=== PATIENT | male | born 1945 | race Caucasian/White ===

== ENCOUNTER → 2017-02-10 | Outpatient (CLI) | payer MEDICARE, BC | LOC: SLEEP 15:44 | PROVIDERS: ATTEND Internal Medicine Critical Care Medicine | DX: Z53.9 Procedure and treatment not carried out, unspecified reason (principal) ==

== ENCOUNTER → 2017-11-16 | Outpatient (CLI) | payer MEDICARE, BC ==
[2017-11-16 12:08] LABS: Glucose 2 Hour 120 mg/dL
== END | disposition home or self-care (01) ==
LOC: LABWHC1 07:57
PROVIDERS: ATTEND Family Medicine
DX: R73.03 Prediabetes (principal)
CPT/HCPCS: 36415; 82947; 82950

== ENCOUNTER 2018-05-25 03:30 | Observation (INO) | payer BC, MEDICARE ==
--- NOTE | 2018-05-25 03:43 | ED ---
Chest Pain HPI - General Chief Complaint: Chest Pain Stated Complaint: chest pain Time Seen by Provider: 05/25/18 03:42 Source: patient Mode of arrival: ambulatory Limitations: no limitations - History of Present Illness Initial Comments: Mr. Ann is a pleasant 72-year-old gentleman with no cardiac history who presents to the emergency department today for evaluation of chest pain. Patient reports that he woke between 2 and 3 AM to use the restroom, upon walking to the restroom he began to feel pressure in his chest. He rested for approximately 20-30 minutes but the pressure persisted. He reports that the pressure and discomfort came and went, every time he came back he was stronger and more severe at which time he alerted his who brought him to the ER for further evaluation. Patient has no history of hypertension, reports he has borderline hyperlipidemia but is not on any statin medications he is not diabetic. He quit smoking 46 years ago. is never seen a laundry helper has no establish cardiac caries never had an echo or stress test. - Related Data Home Medications Medication Instructions Recorded Confirmed Gabapentin [Neurontin] 300 mg PO BID 06/23/14 07/05/15 Meloxicam [Mobic] 7.5 mg PO DAILY 06/23/14 07/02/15 traMADol HCl [Ultram] 50 mg PO BID 06/23/14 07/05/15 Docusate [Colace] 100 mg PO BID PRN 07/02/15 07/05/15 Hydrocortisone [Proctocream-Hc] 30 gm TP TID PRN 07/02/15 07/05/15 Previous Rx's Medication Instructions Recorded Hydrocodone/Acetaminophen [[place] 1 - 2 each PO Q6HR PRN #40 tab 07/05/15 5-325] Allergies Allergy/AdvReac Type Severity Reaction Status Date / Time No Known Allergies Allergy Verified 05/25/18 03:37 Review of Systems ROS Statement: Those systems with pertinent positive or pertinent negative responses have been documented in the HPI. ROS Other: All systems not noted in ROS Statement are negative. EKG Findings - EKG Comments: EKG Findings:: EKG obtained at 3:43 AM rate is 72 rhythm is sinus there are occasional PVCs, there is a leftward axis, there are normal intervals, VT 162, QRS 84, QTC is 402. There are no acute ST elevations or depressions is no evidence of acute ischemia or infarction. Past Medical History Additional Past Medical History / Comment(s): Restless leg syndrome, neuropathy History of Any Multi-Drug Resistant Organisms: None Reported Past Surgical History: Adenoidectomy, Appendectomy, Orthopedic Surgery, Tonsillectomy Additional Past Surgical History / Comment(s): BILATERAL ARTHRO OF BOTH KNEES Past Anesthesia/Blood Transfusion Reactions: No Reported Reaction Past Psychological History: No Psychological Hx Reported Smoking Status: Former smoker Past Alcohol Use History: Rare Past Drug Use History: None Reported - Past Family History Mother Family Medical History: Congestive Heart Failure (CHF) General Exam - General Exam Comments Initial Comments: Physical Exam GENERAL: Patient is well-developed and well-nourished. Patient is nontoxic and well- hydrated and is in no distress. HENT: Normocephalic, Atraumatic. EYES: PERRL, EOMI PULMONARY: Unlabored respirations. No audible rales rhonchi or wheezing was noted. CARDIOVASCULAR: There is a regular rate and rhythm without any murmurs gallops or rubs. ABDOMEN: Soft and nontender with normal bowel sounds. SKIN: Skin is clear with no lesions or rashes and otherwise unremarkable. : Deferred NEUROLOGIC: Patient is alert and oriented x3. Moving all extremities spontaneously MUSCULOSKELETAL: Normal extremities with adequate strength and full range of motion. No lower extremity swelling or edema. No calf tenderness. PSYCHIATRIC: Normal psychiatric evaluation. Limitations: no limitations Limitations: no limitations Course Vital Signs 05/25/18 05/25/18 05/25/18 03:35 03:43 03:50 Temperature 97.7 F Pulse Rate 73 70 Respiratory 20 9 L Rate Blood Pressure 138/83 126/88 131/87 O2 Sat by Pulse 98 95 95 Oximetry 05/25/18 05/25/18 05/25/18 04:10 04:20 04:40 Temperature Pulse Rate 64 68 70 Respiratory 15 20 14 Rate Blood Pressure 119/84 122/82 122/86 O2 Sat by Pulse 96 95 93 L Oximetry 05/25/18 05/25/18 05/25/18 04:50 05:10 05:20 Temperature Pulse Rate 62 69 68 Respiratory 17 10 L 9 L Rate Blood Pressure 122/78 121/86 115/71 O2 Sat by Pulse 93 L 95 95 Oximetry 05/25/18 05/25/18 05/25/18 05:40 05:50 06:20 Temperature Pulse Rate 67 71 Respiratory 8 L 22 Rate Blood Pressure 119/76 112/77 120/72 O2 Sat by Pulse 96 96 Oximetry Chest Pain MDM - MDM She was seen and evaluated history is obtained from the patient and at bedside Patient with pressure-like chest pain that began approximately lower prior to arrival, has improved at the time of evaluation at this time and don't feel the patient needs nitro EKG is non-ischemic Cardiac workup ordered Given the patient's advanced age and male gender history of smoking I do feel he warrants further evaluation Patient care was discussed with Dr. Patterson who agrees with plan for observation and cardiology evaluation Disposition Clinical Impression: Chest pain Disposition: ADMITTED IP TO THIS HOSP Is patient prescribed a controlled substance at d/c from ED?: No Referrals: Madyson Sandoval DO [Primary Care Provider] - 1-2 days
--- NOTE | 2018-05-25 04:17 | XR ---
EXAM: XR Chest, 2 Views CLINICAL HISTORY: Chest pain TECHNIQUE: Frontal and lateral views of the chest. COMPARISON: No relevant prior studies available. FINDINGS: Lungs: Unremarkable. No consolidation. Pleural space: Unremarkable. No pneumothorax. Heart: Unremarkable. No cardiomegaly. Mediastinum: Unremarkable. Bones/joints: Unremarkable. IMPRESSION: Normal chest x-rays.
[2018-05-25 05:30] LABS: Basophils % (A) 1 %; Eosinophils # (A) 0.2 k/uL (0-0.7); Eosinophils % (A) 4 %; HCT 43.4 % (39.0-53.0); HGB 14.9 gm/dL (13.0-17.5); Lymphocytes # (A) 1.6 k/uL (1.0-4.8); Lymphocytes % (A) 35 %; MCHC 34.3 g/dL (31.0-37.0); MCV 90.6 fL (80.0-100.0); Mean Platelet Volume 8.7; Monocytes # (A) 0.3 k/uL (0-1.0); Monocytes % (A) 8 %; Neutrophils # (A) 2.2 k/uL (1.3-7.7); Neutrophils % (A) 49 %; Platelet Count 156 k/uL (150-450); RDW 13.4 % (11.5-15.5); WBC 4.5 k/uL (3.8-10.6)
[2018-05-25 05:40] LABS: Partial Thromboplastin Time 24.9 sec (22.0-30.0); Prothrombin Time 10.8 sec (9.0-12.0)
[2018-05-25 05:59] LABS: ALT 33 U/L (21-72); AST 47 U/L (17-59); Albumin 4.1 g/dL (3.5-5.0); Alkaline Phosphatase 84 U/L (38-126); Amylase 81 U/L (30-110); Anion Gap 6 mmol/L; Blood Urea Nitrogen 21 mg/dL (9-20); Calcium 9.6 mg/dL (8.4-10.2); Carbon Dioxide 23 mmol/L (22-30); Chloride 111 mmol/L (98-107); Glucose 96 mg/dL (74-99); Lipase 165 U/L (23-300); Magnesium 2.1 mg/dL (1.6-2.3); Potassium 4.4 mmol/L (3.5-5.1); Sodium 140 mmol/L (137-145); Total Bilirubin 0.5 mg/dL (0.2-1.3); Total Protein 6.7 g/dL (6.3-8.2)
[2018-05-25 06:11] LABS: Creatine Kinase 445 U/L (55-170)
[2018-05-25 06:24] LABS: Creatine Kinase MB 5.3 ng/mL (0.0-2.4); Troponin I <0.012 ng/mL (0.000-0.034)
[2018-05-25] MEDS ORDERED: NITROGLYCERIN SL TABS 0.4 MG TAB SUBLINGUAL PRN (06:33)
--- NOTE | 2018-05-25 09:54 | P.HPIM ---
History of Present Illness H&P Date: 05/25/18 This is a 72-year-old male patient of Dr. Sandoval. Patient presented to the hospital with complaints of chest pain. Patient reports that he woke up around 3 AM this morning to to the bathroom when he started to experience chest pain and pressure. Patient reports this pain increased and caused shortness of breath and nausea. At that time patient woke up late and proceeded to come to ER for further evaluation. Patient medical history includes hyperlipidemia, pneumonia, tonsillectomy and orthopedic surgeries. Patient reports he was an ex -smoker but quit in 1972. Patient reports his father did have congestive heart failure unaware of any other significant cardiac history. Troponin negative. Chest x-ray completed showing normal chest x-ray. EKG completed showing sinus rhythm with occasional immature ventricular complexes left axis deviation, inferior infarct age undetermined. Cardiology services have been consulted 2-D echo has been ordered. At this time patient reports no chest pain or shortness breath. Patient denies nausea vomiting or diarrhea. Denies any urinary burning or frequency. Review of Systems Please refer to HPI otherwise unremarkable Past Medical History Past Medical History: Hyperlipidemia, Pneumonia Additional Past Medical History / Comment(s): Neuropathy bilateral feet, pt was placed on statin but took himself off, arthritis bilateral thumbs/knees, bilateral eyes have floaters and pt states they are monitoring something in the back of his eyes but doesn't remember exactly what. History of Any Multi-Drug Resistant Organisms: None Reported Past Surgical History: Adenoidectomy, Appendectomy, Orthopedic Surgery, Tonsillectomy Additional Past Surgical History / Comment(s): Bilateral knee arthroscopies, L shoulder arthroscopy/rotator cuff surgery, colonoscopy-normal, bilateral cataract removal/lens implants. Past Anesthesia/Blood Transfusion Reactions: No Reported Reaction Smoking Status: Former smoker - Past Family History Mother Family Medical History: Congestive Heart Failure (CHF) Father Family Medical History: Musculoskeletal Disorder, Neurologic Disorder Additional Family Medical History / Comment(s): Father had parkinson's dx. Medications and Allergies Home Medications Medication Instructions Recorded Confirmed Type Multivitamin/Mineral/Probiotic 1 pack PO HS 05/25/18 05/25/18 History traMADol-ACETAMINOP 37.5-325MG 0.5 tab PO HS 05/25/18 05/25/18 History [Ultracet] Allergies Allergy/AdvReac Type Severity Reaction Status Date / Time No Known Allergies Allergy Verified 05/25/18 06:56 Physical Exam Vitals: Vital Signs Temp Pulse Resp BP Pulse Ox 05/25/18 09:41 74 18 121/80 98 05/25/18 07:51 77 16 110/63 98 05/25/18 06:20 71 22 120/72 96 05/25/18 05:50 112/77 05/25/18 05:40 67 8 L 119/76 96 05/25/18 05:20 68 9 L 115/71 95 05/25/18 05:10 69 10 L 121/86 95 05/25/18 04:50 62 17 122/78 93 L 05/25/18 04:40 70 14 122/86 93 L 05/25/18 04:20 68 20 122/82 95 05/25/18 04:10 64 15 119/84 96 05/25/18 03:50 70 9 L 131/87 95 05/25/18 03:43 126/88 95 05/25/18 03:35 97.7 F 73 20 138/83 98 Intake and Output 05/24/18 05/25/18 05/25/18 22:59 06:59 14:59 Other: Weight 94.347 kg Head normocephalic Neck supple Lungs clear to auscultation bilaterally no wheezing or crackles Heart regular rate and rhythm S1-S2, no rub or gallop Abdomen is soft nontender nondistended positive bowel sounds no hepatosplenomegaly Extremities no edema Neuro alert and orientated to 3 Results CBC & Chem 7: 05/25/18 03:51 05/25/18 03:51 Labs: Abnormal Lab Results - Last 24 Hours (Table) 05/25/18 05/25/18 Range/Units 03:51 03:51 Chloride 111 H (98-107) mmol/L BUN 21 H (9-20) mg/dL Total Creatine Kinase 445 H (55-170) U/L CK-MB (CK-2) 5.3 H (0.0-2.4) ng/mL Thrombosis Risk Factor Assmnt - Choose All That Apply Any of the Below Risk Factors Present?: Yes Each Factor Represents 1 point: Obesity (BMI >25) Other Risk Factors: Yes Each Risk Factor Represents 2 Points: Age 61-74 years Other congenital or acquired thrombophilia - If yes, enter type in comment: No Thrombosis Risk Factor Assessment Total Risk Factor Score: 3 Thrombosis Risk Factor Assessment Level: Moderate Risk Assessment and Plan Assessment: 1. Chest pain. Troponin negative. EKG completed showing sinus rhythm with occasional premature ventricular complexes. Left axis deviation. Inferior infarct, age undetermined. Chest x-ray negative. 2-D echo has been ordered. Cardiology planning stress test tomorrow 2. History of hyperlipidemia 3. History of restless leg syndrome 4. History of orthopedic surgeries 5. Previous smoker from [id number] Time with Patient: Greater than 30 (Greater than 60% of the total time spent in counseling and coordination of care. I performed an examination of the patient and discussed their management with the Nurse Practitioner. I have reviewed the Nurse Practitioner's notes and agree with the documented findings and plan of care)
--- NOTE | 2018-05-25 10:27 | ECHOF ---
Referral Reason:chestpain, no cardiac history MEASUREMENTS -------- HEIGHT: 177.8 cm WEIGHT: 94.3 kg BP: 120/72 RVIDd: 3.4 cm (< 3.3) IVSd: 1.3 cm (0.6 - 1.1) LVIDd: 4.2 cm (3.9 - 5.3) LVPWd: 1.3 cm (0.6 - 1.1) IVSs: 1.7 cm LVIDs: 3.0 cm LVPWs: 1.6 cm LA Diam: 3.3 cm (2.7 - 3.8) LAESV Index (A-L): 22.60 ml/m Ao Diam: 3.3 cm (2.0 - 3.7) AV Cusp: 2.0 cm (1.5 - 2.6) MV EXCURSION: 13.883 mm (> 18.000) MV EF SLOPE: 72 mm/s (70 - 150) EPSS: 0.6 cm MV E Rajiv: 0.66 m/s MV DecT: 206 ms MV A Rajiv: 0.84 m/s MV E/A Ratio: 0.79 RAP: 5.00 mmHg RVSP: 25.25 mmHg FINDINGS -------- Sinus rhythm. This was a technically good study. The left ventricular size is normal. There is mild concentric left ventricular hypertrophy. Overa ll left ventricular systolic function is normal with, an EF between 60 - 65 %. The right ventricle is mildly enlarged. Normal LA size by volume 22+/-6 ml/m2. The right atrium is normal in size. The aortic valve is trileaflet and appears structurally normal. The mitral valve is normal. Mild tricuspid regurgitation present. Right ventricular systolic pressure is normal at < 35 mmHg. Trace/mild (physiologic) pulmonic regurgitation. The aortic root, ascending aorta and aortic arch are normal. IVC Not well visulized. There is no pericardial effusion. CONCLUSIONS -------- 1. Sinus rhythm. 2. This was a technically good study. 3. The left ventricular size is normal. 4. There is mild concentric left ventricular hypertrophy. 5. Overall left ventricular systolic function is normal with, an EF between 60 - 65 %. 6. The right ventricle is mildly enlarged. 7. Normal LA size by volume 22+/-6 ml/m2. 8. The right atrium is normal in size. 9. The aortic valve is trileaflet and appears structurally normal. 10. The mitral valve is normal. 11. Mild tricuspid regurgitation present. 12. Right ventricular systolic pressure is normal at < 35 mmHg. 13. Trace/mild (physiologic) pulmonic regurgitation. 14. The aortic root, ascending aorta and aortic arch are normal. 15. IVC Not well visulized. 16. There is no pericardial effusion. BESSEMER BOTTOM MAKER: Beverley Alvarado RDCS
[2018-05-25] MEDS ORDERED: REGADENOSON 0.4 MG/5 ML SYRINGE IV ONE (10:44)
[2018-05-25] MEDS ORDERED: CAFFEINE CITRATE 60 MG/3 ML VIAL IV PRN (10:44)
[2018-05-25 11:18] LABS: Creatine Kinase 389 U/L (55-170)
--- NOTE | 2018-05-25 11:27 | CONS ---
CONSULTATION CHIEF COMPLAINT: Chest pain. Carlos is a 72-year-old gentleman with no significant past medical history who presented to hospital complaining of chest pain. He describes it as precordial chest pressure that came on at rest without radiation to neck, arm or back. It is unassociated with diaphoresis and unrelated to exertion. There is no history of leg edema, paroxysmal nocturnal dyspnea or orthopnea. PAST MEDICAL HISTORY: Past medical history is negative for hypertension, diabetes, dyslipidemia. MEDICATIONS: Medications include Ultracet and Probiotic. He takes Ultracet secondary to knee pain. ALLERGIES: No known drug allergies. FAMILY HISTORY: Family history is negative for premature coronary artery disease. SOCIAL HISTORY: Social history is negative for current smoking, EtOH abuse, or drug abuse. REVIEW OF SYSTEMS: HEENT is unremarkable. CARDIAC: As described above. RESPIRATORY: Negative. GI: Negative. GENITOURINARY: Negative. ALLERGY/IMMUNOLOGY: Negative. SKIN: Negative. MUSCULOSKELETAL: Significant for arthritis. PSYCHOSOCIAL: Negative ENDOCRINE: Negative. DERM: Negative. CONSTITUTIONAL: Negative. ONCOLOGICAL: Negative. Rest of the system review is not relevant. PHYSICAL EXAMINATION: On exam, patient is comfortable at rest. Vital signs are stable. There is no jugular venous distention. Carotid upstroke is normal. There is no bruit. Chest exam reveals good air entry bilaterally. Heart exam reveals first and second heart sounds. No gallop. No murmur. No rub. Abdomen is soft, nontender. Examination of extremities did not reveal edema. Peripheral pulses are felt. WHITE SUGAR SUPERVISOR exam did not reveal focal neurological deficits. Labs show a hemoglobin of 14.9, platelet count is 150. Potassium is 4.4. Creatinine is 0.8. One set of troponin is negative. ASSESSMENT: Precordial chest pain. PLAN: Patient's chest discomfort sounds equivocal. EKG shows sinus rhythm with evidence of prior inferior wall myocardial infarction, left axis deviation, and PVCs. An echocardiogram showed normal LV systolic function. I talked to patient about further workup including cardiac catheterization for definitive diagnosis. Understanding all the issues, he wishes to proceed with a stress test and if the stress test is abnormal consider cardiac catheterization. I am going to schedule him for a Lexiscan tomorrow morning. MMODL / IJN: [id number] /
[2018-05-25 11:32] LABS: Creatine Kinase MB 3.9 ng/mL (0.0-2.4); Troponin I <0.012 ng/mL (0.000-0.034)
[2018-05-25 16:47] LABS: Creatine Kinase 365 U/L (55-170)
[2018-05-25 16:59] LABS: Troponin I <0.012 ng/mL (0.000-0.034)
[2018-05-25] MEDS: traMADol-ACETAMINOP 37.5-325MG 1 EACH TAB PO SCH (21:36)
[2018-05-26 06:56] LABS: Basophils % (A) 0 %; Eosinophils # (A) 0.2 k/uL (0-0.7); Eosinophils % (A) 4 %; HCT 44.8 % (39.0-53.0); HGB 14.7 gm/dL (13.0-17.5); Lymphocytes # (A) 1.4 k/uL (1.0-4.8); Lymphocytes % (A) 32 %; MCHC 32.7 g/dL (31.0-37.0); MCV 91.5 fL (80.0-100.0); Mean Platelet Volume 7.7; Monocytes # (A) 0.3 k/uL (0-1.0); Monocytes % (A) 7 %; Neutrophils # (A) 2.3 k/uL (1.3-7.7); Neutrophils % (A) 54 %; Platelet Count 161 k/uL (150-450); RDW 13.1 % (11.5-15.5); WBC 4.3 k/uL (3.8-10.6)
[2018-05-26 07:07] LABS: ALT 43 U/L (21-72); AST 37 U/L (17-59); Albumin 4.1 g/dL (3.5-5.0); Alkaline Phosphatase 90 U/L (38-126); Anion Gap 7 mmol/L; Blood Urea Nitrogen 21 mg/dL (9-20); Calcium 9.4 mg/dL (8.4-10.2); Carbon Dioxide 23 mmol/L (22-30); Chloride 110 mmol/L (98-107); Cholesterol 173 mg/dL (<200); Glucose 107 mg/dL (74-99); HDL Cholesterol 47 mg/dL (40-60); LDL Cholesterol,Calculated 91 mg/dL (0-99); Potassium 4.9 mmol/L (3.5-5.1); Sodium 140 mmol/L (137-145); Total Bilirubin 0.5 mg/dL (0.2-1.3); Total Protein 6.9 g/dL (6.3-8.2); Triglycerides 177 mg/dL (<150)
[2018-05-26] MEDS ORDERED: REGADENOSON 0.4 MG/5 ML SYRINGE IV ONE (08:46)
[2018-05-26] MEDS: ASPIRIN 325 MG TAB PO SCH (10:01)
--- NOTE | 2018-05-26 10:55 | EST ---
EXERCISE STRESS AGE: 72 SEX: M HT: 70" WT: 208 PROTOCOL: Lexiscan Cardiolite Stress Test HEART RATE REST: 69 BLOOD PRESSURE REST: 120/77 MAXIMUM HEART RATE ACHIEVED: 101 MAXIMUM BLOOD PRESSURE: 125/65 INDICATIONS: Chest pain, difficulty in breathing. CLINICAL INFORMATION: Baseline EKG shows sinus rhythm, normal axis, normal intervals. Patient was given intravenous Lexiscan as per protocol. Did not have chest pain or diagnostic ST-segment depression. CONCLUSION: 1. Negative stress test by EKG criteria. 2. Cardiolite portion of the stress test will be reported separately. MMODL / IJN: [id number] /
--- NOTE | 2018-05-26 11:09 | P.PN ---
Subjective Mr. Apodaca is seen and examined up and walking in the halls and around his room. He denies any further symptoms of chest discomfort. He is scheduled to undergo Lexiscan stress test today. Cardiac enzymes negative x3, WBC 4.3, hgb 14.7, plt 161, sodium 140, potassium 4.9, creatinine 0.95, LDL 91. Blood pressure 113/74, heart rate 72, afebrile and maintaining oxygen saturation on room air. He currently takes no daily medications. Telemetry tracings unremarkable. GENERAL: Well-appearing, well-nourished and in no acute distress. NECK: Supple without JVD or thyromegaly. LUNGS: Breath sounds clear to auscultation bilaterally. Respiration equal and unlabored. No wheezes, rales or rhonchi. HEART: Regular rate and rhythm without murmurs, rubs or gallops. S1 and S2 heard. EXTREMITIES: Normal range of motion, no edema. No clubbing or cyanosis. Peripheral pulses intact. ASSESSMENT Precordial chest pain, an acute event has been ruled out. PLAN Proceed with stress test as ordered. If normal he is stable from a cardiac perspective for discharge home. If abnormal we will consider coronary angiography. Nurse Practitioner note has been reviewed, I agree with a documented findings and plan of care. Patient was seen and examined. Objective - Vital Signs Vital signs: Vital Signs Temp 98 F 05/26/18 07:35 Pulse 72 05/26/18 08:00 Resp 18 05/26/18 08:00 BP 113/74 05/26/18 07:35 Pulse Ox 95 05/26/18 07:35 Intake & Output 05/25/18 05/26/18 05/26/18 18:59 06:59 18:59 Intake Total 440 Balance 440 Intake: Oral 240 Other 200 Other: Voiding Method Toilet Toilet Toilet # Voids 2 1 - Labs CBC & Chem 7: 05/26/18 06:37 05/26/18 06:37 Labs: Abnormal Lab Results - Last 24 Hours (Table) 05/25/18 05/25/18 05/26/18 Range/Units 10:46 16:17 06:37 Chloride 110 H (98-107) mmol/L BUN 21 H (9-20) mg/dL Glucose 107 H (74-99) mg/dL Total Creatine Kinase 389 H 365 H (55-170) U/L CK-MB (CK-2) 3.9 H 4.0 H (0.0-2.4) ng/mL Triglycerides 177 H (<150) mg/dL
--- NOTE | 2018-05-26 11:25 | NM ---
EXAMINATION TYPE: NM stress lexiscan cardiolite DATE OF EXAM: 05/26/2018 COMPARISON: NONE HISTORY: Chest pain TECHNIQUE: After the intravenous administration of 9.68 mCi Tc 99m Sestamibi - Cardiolite resting SP ECT images acquired 60 minutes post injection. The patient received 0.4mg Lexiscan, 26.6 mCi Tc 99m Sestamibi - Stress images obtained [address] injection FINDINGS: Review of stress and rest SPECT images demonstrates decreased radio pharmaceutical uptake along the i nferolateral left ventricle on stress and rest images. Along the inferolateral left ventricle there i s some decreased uptake on stress as compared to rest images. Gated analysis shows normal wall motion with an estimated left ventricular ejection fraction of 67 %. 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 Consider echocardiographic correlation for elevated ejection fraction
[2018-05-26] MEDS ORDERED: ALPRAZolam 0.25 MG TAB PO PRN (11:33)
[2018-05-26] MEDS ORDERED: SODIUM CHLORIDE 0.9% 1,000 ML in EMPTY BAG 1 BAG IV ONE (11:33)
[2018-05-26] MEDS ORDERED: ALPRAZolam 0.5 MG TAB PO PRN (11:33)
--- NOTE | 2018-05-26 12:11 | P.PN ---
Subjective Progress Note Date: 05/26/18 This is a 72-year-old male patient of Dr. Sandoval. Patient presented to the hospital with complaints of chest pain. Patient reports that he woke up around 3 AM this morning to to the bathroom when he started to experience chest pain and pressure. Patient reports this pain increased and caused shortness of breath and nausea. At that time patient woke up late and proceeded to come to ER for further evaluation. Patient medical history includes hyperlipidemia, pneumonia, tonsillectomy and orthopedic surgeries. Patient reports he was an ex -smoker but quit in 1972. Patient reports his father did have congestive heart failure unaware of any other significant cardiac history. Troponin negative. Chest x-ray completed showing normal chest x-ray. EKG completed showing sinus rhythm with occasional immature ventricular complexes left axis deviation, inferior infarct age undetermined. Cardiology services have been consulted 2-D echo has been ordered. At this time patient reports no chest pain or shortness breath. Patient denies nausea vomiting or diarrhea. Denies any urinary burning or frequency. On 05/26/2018 patient is alert and oriented 3. Patient had stress test completed today per cardiology recommending cardiac cath. Patient to have cardiac cath done tomorrow. At this time patient denies chest pain or shortness of breath. Patient denies nausea vomiting or diarrhea. Patient denies any urinary burning or frequency. Objective - Vital Signs Vital signs: Vital Signs Temp 98 F 05/26/18 07:35 Pulse 72 05/26/18 08:00 Resp 18 05/26/18 08:00 BP 113/74 05/26/18 07:35 Pulse Ox 95 05/26/18 07:35 Intake & Output 05/25/18 05/26/18 05/26/18 18:59 06:59 18:59 Intake Total 440 Balance 440 Intake: Oral 240 Other 200 Other: Voiding Method Toilet Toilet Toilet # Voids 2 1 - Exam Head normocephalic Neck supple Lungs clear to auscultation bilaterally no wheezing or crackles Heart regular rate and rhythm S1-S2, no rub or gallop Abdomen is soft nontender nondistended positive bowel sounds no hepatosplenomegaly Extremities no edema Neuro alert and orientated to 3 - Labs CBC & Chem 7: 05/26/18 06:37 05/26/18 06:37 Labs: Abnormal Lab Results - Last 24 Hours (Table) 05/25/18 05/26/18 Range/Units 16:17 06:37 Chloride 110 H (98-107) mmol/L BUN 21 H (9-20) mg/dL Glucose 107 H (74-99) mg/dL Total Creatine Kinase 365 H (55-170) U/L CK-MB (CK-2) 4.0 H (0.0-2.4) ng/mL Triglycerides 177 H (<150) mg/dL Assessment and Plan Assessment: 1. Chest pain. Troponin negative. EKG completed showing sinus rhythm with occasional premature ventricular complexes. Left axis deviation. Inferior infarct, age undetermined. Chest x-ray negative. 2-D echo completed showing an EF of 60-65%. Lexiscan stress test completed showing findings suggest previous infarct along the inferior wall ventricle with some mi-infarct pharmacologically induced left ventricular myocardial ischemia. Patient to undergo cardiac cath tomorrow per cardiology. 2. History of hyperlipidemia 3. History of restless leg syndrome 4. History of orthopedic surgeries 5. Previous smoker from [id number] I performed an examination of the patient and discussed their management with the Nurse Practitioner. I have reviewed the Nurse Practitioner's notes and agree with the documented findings and plan of care
[2018-05-26] MEDS ORDERED: MELATONIN 1 MG TAB PO SCH (21:00)
[2018-05-26] MEDS: traMADol-ACETAMINOP 37.5-325MG 1 EACH TAB PO SCH (21:01)
[2018-05-27 04:19] VITALS: TEMP 97.9
[2018-05-27] MEDS: ASPIRIN 325 MG TAB PO SCH (07:45)
[2018-05-27 07:56] LABS: Basophils % (A) 0 %; Eosinophils # (A) 0.1 k/uL (0-0.7); Eosinophils % (A) 3 %; HCT 41.5 % (39.0-53.0); Lymphocytes # (A) 1.3 k/uL (1.0-4.8); Lymphocytes % (A) 34 %; MCH 31.2 pg (25.0-35.0); MCHC 33.9 g/dL (31.0-37.0); MCV 92.1 fL (80.0-100.0); Mean Platelet Volume 8.5; Monocytes # (A) 0.3 k/uL (0-1.0); Monocytes % (A) 7 %; Neutrophils # (A) 2.1 k/uL (1.3-7.7); Neutrophils % (A) 54 %; Platelet Count 133 k/uL (150-450); RDW 13.4 % (11.5-15.5); WBC 3.9 k/uL (3.8-10.6)
[2018-05-27 08:24] LABS: ALT 43 U/L (21-72); AST 33 U/L (17-59); Albumin 3.9 g/dL (3.5-5.0); Alkaline Phosphatase 90 U/L (38-126); Anion Gap 10 mmol/L; Blood Urea Nitrogen 17 mg/dL (9-20); Carbon Dioxide 21 mmol/L (22-30); Chloride 111 mmol/L (98-107); Glucose 105 mg/dL (74-99); Potassium 4.4 mmol/L (3.5-5.1); Sodium 142 mmol/L (137-145); Total Bilirubin 0.4 mg/dL (0.2-1.3); Total Protein 6.5 g/dL (6.3-8.2)
[2018-05-27] MEDS ORDERED: LIDOCAINE 1% INJ 10MG/ML (20 ML MDV) ONE (08:28)
[2018-05-27] MEDS ORDERED: fentaNYL (PF) 50 MCG/ML 2 ML AMP ONE (08:28)
[2018-05-27 08:33] VITALS: RESP 18
[2018-05-27] MEDS ORDERED: MIDAZOLAM 2 MG/2 ML VIAL IVP ONE (08:35)
[2018-05-27] MEDS ORDERED: fentaNYL (PF) 50 MCG/ML 2 ML AMP IVP ONE (08:35)
[2018-05-27] MEDS ORDERED: LIDOCAINE 1% INJ 10MG/ML (20 ML MDV) SQ ONE (08:36)
[2018-05-27] MEDS ORDERED: IV FLUID CONTINUATION 1,000 ML IV ONE (08:40)
[2018-05-27] MEDS ORDERED: IOPAMIDOL-370 100ML BTL INJ ONE (08:49)
[2018-05-27] MEDS ORDERED: RX INFO: IV CONTRAST WAS GIVEN 1 EACH MISC MISCELLANE PRN (08:56)
[2018-05-27] MEDS ORDERED: METOPROLOL SUCCINATE (ER) 25 MG TAB.ER.24H PO SCH (09:00)
[2018-05-27] MEDS ORDERED: ASPIRIN 81 MG PO SCH (09:00)
[2018-05-27] MEDS ORDERED: ATORVASTATIN 80 MG TAB PO ONE (09:00)
--- NOTE | 2018-05-27 09:08 | CC ---
CARDIAC CATHETERIZATION REPORT INDICATION: Unstable angina with abnormal stress test. PROCEDURE NOTE: After obtaining informed consent, left heart catheterization and coronary angiogram are performed via the right femoral artery using standard Trevor catheters. The patient tolerated the procedure well without any obvious immediate complication. A femoral angiogram was performed and Angio-Seal was deployed for hemostasis. Patient received moderate conscious sedation and total sedation time was 15 minutes. FINDINGS: 1. HEMODYNAMICS: Left ventricular end-diastolic pressure is 8 mm. There is no significant gradient across the aortic valve. 2. LEFT VENTRICULOGRAM: Left ventriculogram is not performed. 3. ANGIOGRAPHIC DATA: Left Main Coronary Artery: Left main coronary artery appears calcified but is free of significant stenosis. Divides into left anterior descending coronary artery and circumflex coronary artery. Circumflex coronary artery is a small nondominant vessel that seems chronically occluded past the origin of an OM branch. Both the LAD and circumflex have mild diffuse intimal irregularities. Right coronary artery is a large dominant vessel and is free of significant disease. 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 PLAN: Patient's management is going to be with optimal medical therapy and aggressive risk factor modification. I reviewed angiographic data with the patient. He understands and agreement with the plan. MMODL / IJN: [id number] /
[2018-05-27 13:03] VITALS: BP 116/75; PULSE 76
--- NOTE | 2018-05-27 14:16 | P.DS ---
Providers Date of admission: 05/25/18 06:33 Expected date of discharge: 05/27/18 Attending physician: Liz Patterson Consults: 05/25/18 06:33 Consult Physician Urgent Consulting Provider: [facility] Consult Reason/Comments: chest pain, Do you want consulting provider notified?: Yes, Notify in am Primary care physician: Madyson Sandoval [facility] Course: Discharge diagnosis 1. Chest pain. Troponin negative. EKG completed showing sinus rhythm with occasional premature ventricular complexes. Left axis deviation. Inferior infarct, age undetermined. Chest x-ray negative. 2-D echo completed showing an EF of 60-65%. Lexiscan stress test completed showing findings suggest previous infarct along the inferior wall ventricle with some mi-infarct pharmacologically induced left ventricular myocardial ischemia. 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 Plan to continue with optimal medical therapy and aggressive risk factor modification. 2. History of hyperlipidemia 3. History of restless leg syndrome 4. History of orthopedic surgeries 5. Previous smoker from [id number] Hospital course This is a 72-year-old male patient of Dr. Sandoval. Patient presented to the hospital with complaints of chest pain. Patient reports that he woke up around 3 AM this morning to to the bathroom when he started to experience chest pain and pressure. Patient reports this pain increased and caused shortness of breath and nausea. At that time patient woke up late and proceeded to come to ER for further evaluation. Patient medical history includes hyperlipidemia, pneumonia, tonsillectomy and orthopedic surgeries. Patient reports he was an ex -smoker but quit in 1972. Patient reports his father did have congestive heart failure unaware of any other significant cardiac history. Troponin negative. Chest x-ray completed showing normal chest x-ray. EKG completed showing sinus rhythm with occasional immature ventricular complexes left axis deviation, inferior infarct age undetermined. Cardiology services have been consulted 2-D echo has been ordered. At this time patient reports no chest pain or shortness breath. Patient denies nausea vomiting or diarrhea. Denies any urinary burning or frequency. On 05/26/2018 patient is alert and oriented 3. Patient had stress test completed today per cardiology recommending cardiac cath. Patient to have cardiac cath done tomorrow. At this time patient denies chest pain or shortness of breath. Patient denies nausea vomiting or diarrhea. Patient denies any urinary burning or frequency. On 05/27/2018 patient's alert and oriented 3. Patient is status post heart cath which was found he had chronic occlusion of the small bowel nondominant circumflex coronary artery. Patient has been cleared for discharge from cardiology standpoint. Patient will be DC'd on Lipitor metoprolol and aspirin per cardiology services. At this time patient denies chest pain or shortness breath. Patient denies nausea vomiting or diarrhea. Patient denies urinary burning or frequency. I performed an examination of the patient and discussed their management with the Nurse Practitioner. I have reviewed the Nurse Practitioner's notes and agree with the documented findings and plan of care Patient Condition at Discharge: Stable Plan - Discharge Summary Discharge Rx Participant: No New Discharge Prescriptions: New Aspirin 81 mg PO DAILY chew Atorvastatin [Lipitor] 40 mg PO DAILY #90 tab Metoprolol Succinate (ER) [Toprol XL] 12.5 mg PO DAILY #90 tab.er.24h Continue traMADol-ACETAMINOP 37.5-325MG [Ultracet] 0.5 tab PO HS Multivitamin/Mineral/Probiotic 1 pack PO HS Discharge Medication List Multivitamin/Mineral/Probiotic 1 pack PO HS 05/25/18 [History] traMADol-ACETAMINOP 37.5-325MG [Ultracet] 0.5 tab PO HS 05/25/18 [History] Aspirin 81 mg PO DAILY chew 05/27/18 [Rx] Atorvastatin [Lipitor] 40 mg PO DAILY #90 tab 05/27/18 [Rx] Metoprolol Succinate (ER) [Toprol XL] 12.5 mg PO DAILY #90 tab.er.24h 05/27/18 [ Rx] Follow up Appointment(s)/Referral(s): Madyson Sandoval DO [Primary Care Provider] - 1-2 days Ketan Conley MD [STAFF PHYSICIAN] - 1 Week Activity/Diet/Wound Care/Special Instructions: Activity as tolerated Diet heart healthy Discharge Disposition: HOME SELF-CARE
[2018-05-28] MEDS ORDERED: ATORVASTATIN 40 MG TAB PO SCH (09:00)
== END 2018-05-27 15:30 | disposition home or self-care (01) ==
LOC: EC 03:30 → 1SOBS 06:33
PROVIDERS: ADMIT Internal Medicine; ATTEND Internal Medicine
DX: R07.89 Other chest pain (principal); I25.10 Atherosclerotic heart disease of native coronary artery without angina pectoris; I25.82 Chronic total occlusion of coronary artery; I49.3 Ventricular premature depolarization; I25.2 Old myocardial infarction; E78.5 Hyperlipidemia, unspecified; R94.39 Abnormal result of other cardiovascular function study; G62.9 Polyneuropathy, unspecified; M17.0 Bilateral primary osteoarthritis of knee; G25.81 Restless legs syndrome; M19.042 Primary osteoarthritis, left hand; M19.041 Primary osteoarthritis, right hand; H43.393 Other vitreous opacities, bilateral; E66.9 Obesity, unspecified; Z68.29 Body mass index [BMI] 29.0-29.9, adult; Z79.1 Long term (current) use of non-steroidal anti-inflammatories (NSAID); Z79.891 Long term (current) use of opiate analgesic; Z79.899 Other long term (current) drug therapy; Z90.49 Acquired absence of other specified parts of digestive tract; Z98.42 Cataract extraction status, left eye; Z98.41 Cataract extraction status, right eye; Z96.1 Presence of intraocular lens; Z87.891 Personal history of nicotine dependence; Z87.01 Personal history of pneumonia (recurrent); Z82.49 Family history of ischemic heart disease and other diseases of the circulatory system; Z82.0 Family history of epilepsy and other diseases of the nervous system
CPT/HCPCS: 99152; 99285; 36415; 93005; 93017; 93306; 93458; 83880; 80061; 80053 ×3; 82150; 82550; 82553; 83690; 83735; 84484; 85025 ×3; 85610; 85730; 71046; 78452; G0378 ×3; C1760; C1894; C1769; A9500; J2250; J2001; J3010; J2785; Q9967

== ENCOUNTER 2019-06-19 14:04 | Emergency (ER) | payer OTHER, MEDICARE ==
[2019-06-19 14:12] VITALS: BP 146/92; PULSE 75; RESP 16; TEMP 97.9
--- NOTE | 2019-06-19 14:47 | XR ---
EXAMINATION TYPE: XR hand complete LT DATE OF EXAM: 06/19/2019 COMPARISON: NONE HISTORY: Pain TECHNIQUE: 3 views FINDINGS: There is narrowing of the IP joint spaces with spur formation. There is moderate osteoarthr itis at the first carpometacarpal joint. MP joint spaces show no subluxation. There is slight narrowi ng of the second MP joint space. There is no evidence of a fracture. IMPRESSION: Osteoarthritis. No fracture.
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
== END 2019-06-19 14:58 | disposition home or self-care (01) ==
LOC: EC 14:04
DX: M79.642 Pain in left hand (principal); M18.0 Bilateral primary osteoarthritis of first carpometacarpal joints; M17.0 Bilateral primary osteoarthritis of knee; Z87.891 Personal history of nicotine dependence; Z79.891 Long term (current) use of opiate analgesic; V43.52XA Car driver injured in collision with other type car in traffic accident, initial encounter; Y92.410 Unspecified street and highway as the place of occurrence of the external cause
CPT/HCPCS: 99284

== ENCOUNTER → 2020-05-30 | Outpatient (CLI) | payer MEDICARE ==
--- NOTE | 2020-05-31 09:06 | XR ---
EXAMINATION TYPE: XR chest 2V DATE OF EXAM: 05/30/2020 COMPARISON: 05/25/2018 HISTORY: Shortness of breath TECHNIQUE: Frontal and lateral views of the chest are obtained. FINDINGS: Scattered senescent parenchymal changes noted. Hyperinflation compatible with COPD. No evidence for infiltrate. No evidence for atelectasis. Heart size is stable. Mediastinal structures are stable and grossly unremarkable. No evidence for hilar prominence. Degenerative changes dorsal spine. IMPRESSION: 1. No evidence for acute pulmonary disease.
== END | disposition home or self-care (01) ==
LOC: RADXRMAIN 16:55
PROVIDERS: ATTEND Physician Assistant
DX: Z01.818 Encounter for other preprocedural examination (principal)
CPT/HCPCS: 71046

== ENCOUNTER → 2020-06-04 | Outpatient (CLI) | payer MEDICARE ==
[2020-06-04 16:40] LABS: Appearance,Urine Clear (Clear); Bilirubin,Urine Negative (Negative); Blood,Urine Negative (Negative); Color,Urine Yellow; Glucose,Urine (UA) Negative (Negative); Ketones,Urine Negative (Negative); Leukocyte Esterase,Urine Negative (Negative); Nitrite,Urine Negative (Negative); PH, Urine 6.5 (5.0-8.0); Protein,Urine Negative (Negative); Urobilinogen,Urine <2.0 mg/dL (<2.0)
== END | disposition home or self-care (01) ==
LOC: LABPAT 15:52
PROVIDERS: ATTEND Orthopaedic Surgery
DX: Z01.818 Encounter for other preprocedural examination (principal); Z01.812 Encounter for preprocedural laboratory examination
CPT/HCPCS: 81003; 87070

== ENCOUNTER → 2020-06-05 | Outpatient (CLI) | payer MEDICARE ==
[2020-06-05 16:26] LABS: HGB 15.4 gm/dL (13.0-17.5); MCH 31.3 pg (25.0-35.0); MCHC 34.2 g/dL (31.0-37.0); MCV 91.7 fL (80.0-100.0); Mean Platelet Volume 8.3; Platelet Count 154 k/uL (150-450); RBC 4.91 m/uL (4.30-5.90); RDW 12.8 % (11.5-15.5); WBC 4.3 k/uL (3.8-10.6)
[2020-06-05 16:35] LABS: Partial Thromboplastin Time 23.9 sec (22.0-30.0); Prothrombin Time 10.9 sec (9.0-12.0)
[2020-06-05 16:44] LABS: ALT 28 U/L (4-49); AST 37 U/L (17-59); African American GFR (CKD) >90 (>60 ml/min/1.73 sqM); Albumin 4.1 g/dL (3.5-5.0); Alkaline Phosphatase 78 U/L (38-126); Anion Gap 10 mmol/L; Blood Urea Nitrogen 28 mg/dL (9-20); Calcium 9.3 mg/dL (8.4-10.2); Carbon Dioxide 23 mmol/L (22-30); Chloride 105 mmol/L (98-107); Glucose 96 mg/dL (74-99); Non-African American GFR(CKD) 87 (>60 ml/min/1.73 sqM); Potassium 4.7 mmol/L (3.5-5.1); Sodium 138 mmol/L (137-145); Total Bilirubin 0.6 mg/dL (0.2-1.3); Total Protein 6.7 g/dL (6.3-8.2)
== END | disposition home or self-care (01) ==
LOC: LABPAT 15:04
PROVIDERS: ATTEND Orthopaedic Surgery
DX: Z01.818 Encounter for other preprocedural examination (principal)
CPT/HCPCS: 36415; 80053; 85027; 85610; 85730

== ENCOUNTER 2020-06-12 09:48 | Day surgery (SDC) | payer MEDICARE ==
[~2020-06-12 09:48] MED LIST: ACETAMINOPHEN TAB 500 MG TAB PO PRN; DEXAMETHASONE SOD PHOSPHATE 4 MG/ML 1 ML VIAL IV ONE; GABAPENTIN 300 MG CAP PO PRN; HYDROcodone/APAP 5-325MG 1 EACH TAB PO PRN; HYDROmorphone 0.2 MG/1 ML SYRINGE IVP PRN; HYDROmorphone 0.5 MG/0.5 ML SYRINGE IVP PRN; LACTATED RINGERS 1,000 ML IV SCH; LIDOCAINE 1% (10MG/ML) FOR IV START INTRADERMA PRN; MAGNESIUM HYDROXIDE 2,400 MG/10 ML CUP PO PRN; MELOXICAM 7.5 MG TAB PO PRN; MIDAZOLAM 2 MG/2 ML VIAL IV PRN; NA PHOS,M-B/NA PHOS,DI-BA 133 ML ENEMA RECTAL PRN; NALOXONE 0.4 MG/ML 1 ML VIAL IV PRN; ONDANSETRON 4 MG/2 ML VIAL IVP ONE; ONDANSETRON 4 MG/2 ML VIAL IVP PRN; SODIUM CHLORIDE 0.9% 1,000 ML IV SCH; TRANEXAMIC ACID 1,000 MG in SODIUM CHLORIDE 0.9% 100 ML IVPB PRN; bisacodyL 10 MG SUPP RECTAL PRN; fentaNYL (PF) 50 MCG/ML 2 ML AMP IVP PRN
[2020-06-12] MEDS ORDERED: fentaNYL (PF) 50 MCG/ML 2 ML AMP IV ONE (10:59)
[2020-06-12] MEDS ORDERED: MIDAZOLAM 2 MG/2 ML VIAL IV ONE (10:59)
[2020-06-12] MEDS ORDERED: PHENYLEPHRINE-0.9% NACL SYG 1,000 MCG/10 ML SYRINGE ONE (11:09)
[2020-06-12] MEDS ORDERED: GLYCOPYRROLATE 0.2 MG/ML 2 ML VIAL ONE (11:09)
[2020-06-12] MEDS ORDERED: NEOSTIGMINE 1 MG/ML 10 ML VIAL ONE (11:09)
[2020-06-12] MEDS ORDERED: ROCURONIUM 10 MG/ML (5 ML VIAL) IV ONE (11:09)
[2020-06-12] MEDS ORDERED: LIDOCAINE 1% INJ 10MG/ML (20 ML MDV) ONE (11:09)
[2020-06-12] MEDS ORDERED: TRANEXAMIC ACID 1,000 MG/10 ML VIAL ONE (11:09)
[2020-06-12] MEDS ORDERED: SODIUM CHLORIDE 0.9% 100 ML BAG ONE (11:09)
[2020-06-12] MEDS ORDERED: MIDAZOLAM 2 MG/2 ML VIAL ONE (11:09)
[2020-06-12] MEDS ORDERED: fentaNYL (PF) 50 MCG/ML 2 ML AMP ONE (11:09)
[2020-06-12] MEDS ORDERED: SUCCINYLCHOLINE CHLORIDE 100 MG/5 ML SYR IV ONE (11:09)
[2020-06-12] MEDS ORDERED: PROPOFOL 10 MG/ML 20 ML VIAL IV ONE (11:09)
[2020-06-12] MEDS: ROPIVACAINE 246.25 MG, EPINEPHrine 0.5 MG, KETOROLAC 30 MG, cloNIDine HCL/PF 80 MCG, WA... MISCELLANE PRN ×10 (11:40→12:17)
[2020-06-12] MEDS ORDERED: ceFAZolin 3,000 MG in SODIUM CHLORIDE 0.9% IRRIGATIO 3,000 ML IRRIGATION ONE (11:41)
--- NOTE | 2020-06-12 12:26 | P.OP ---
Date of Procedure: 06/12/20 Preoperative Diagnosis: Severe osteoarthritis right knee Postoperative Diagnosis: Severe osteoarthritis right knee Procedure(s) Performed: Right total knee arthroplasty Implants: [employer] Journey II CR Oxinium cruciate retaining femoral component size 7, right [employer] Journey nonporous tibial baseplate size 7, right [employer] Journey II, XLPE CR articular insert, size 9 mm, Size 7-8, right [employer] Journey Leatha II resurfacing patellar component, oval, 35 mm All components were cemented using Palacos R bone cement The articulation is Oxinium on polyethylene Anesthesia: GETA Surgeon: Russell Schumacher Technical Translator #1: Laura Alejandra Estimated Blood Loss (ml): 30 Pathology: other (Bone and cartilage) Condition: stable Disposition: PACU Indications for Procedure: After failure of conservative treatment we discussed the surgical and nonsurgical treatment options at length. Patient wishes to proceed with a total knee arthroplasty. Complications specific to this procedure were discussed at length, including but not limited to infection, bleeding, stiffness, and nerve injury. Covid-19 was also discussed at length with the patient, and they are aware of the current policies and procedures. The patient was given the option of delaying surgery, but they elect to proceed knowing these risks. Patient is aware of all these complications and informed consent was obtained Operative Findings: The operative findings are consistent with severe osteoarthritis of the right knee Description of Procedure: Patient was seen in the preoperative area and the consent was reviewed and the operative site was marked with a skin marker. The patient verified the procedure and the operative site. An adductor canal pain catheter was placed by anesthesia in the preoperative area. The patient was then brought to the operating room and given preoperative antibiotics intravenously. A gram of transexamic acid was given intravenously. A general anesthetic was administered by the anesthesia department. A tourniquet was placed on the upper thigh and the lower extremity was prepped with chlorhexidine and draped in usual sterile fashion. A universal timeout was then performed which confirmed the patient's name, surgical site, ALLERGIES, and consent. The lower extremity was then exsanguinated and tourniquet was inflated to 250 mmHg. A standard anterior midline approach to the knee was performed. The skin and subcutaneous tissue were sharply dissected down to the patellar tendon. A medial parapatellar arthrotomy was then performed. The knee was then extended, the patellar was everted, and the knee was again flexed. The infra-patellar fat pad was removed in order to enhance exposure. The anterior horns of both me nisci were excised, and a release was performed to the posterior medial aspect of the knee. On gross visual inspection, there was complete loss of articular cartilage in the medial and patellofemoral joint spaces. There was also significant cartilage damage in the lateral compartment. There were multiple periarticular osteophytes globally about the knee which were then removed with a Ronguer. The femoral canal was then opened with the 9.5 mm intramedullary drill. The 8 mm intramedullary hedy was then inserted into the femoral canal with the distal femoral cutting guide set for 5 of valgus. The distal femoral cutting block was then pinned in place. The intramedullary hedy was then removed, and the distal femur was then cut. The cutting block was then removed and the cut was checked for symmetry. The resected bone was then measured to confirm the appropriate distal femoral resection. Next, the sizing guide was then placed and set for 3 external rotation based off of the epicondylar axis and Whitesides line. Pins were then placed and the drill holes, and the femur was sized with the sizing stylus. The pins were then removed, and the sizing guide was then removed. The spikes of the femoral block was then placed into the predrilled holes, and malleted into place. Two 45 mm pins were then placed into the fixation holes on the cutting block. An raeann wing was then used to ensure there would be no notching with the anterior cut. The anterior condyles were cut without notching. The anterior chord cut was then performed, followed by the posterior cut, posterior chamfer cut, and the anterior chamfer cut. The collateral ligaments were protected during the entire process. The cutting block was then removed. Any remaining bone and osteophytes were removed from the femur with a Rominger. The femoral canal was plugged with autologous bone. Attention was then directed to the tibia. The remaining ACL was removed with a Ronguer, and the tibia was then gently subluxed forward with a large bent knee retractor. Any remaining menisci were excised. The posterior lateral corner was cauterized in order to coagulate the lateral geniculate artery. The extra medullary tibial cutting guide was then placed, set for the appropriate rotation, slope, and depth of resection. The proximal tibia cutting guide was then pinned in place. Proximal tibia was then cut and sized. The femoral trial was placed. A narrow saw blade was then used to remove the anterior intracondylar femoral bone. The CR notch trial was then placed. The tibial trial was placed with the appropriate-sized insert. The knee was able to fully extend and flex to 130 and was stable throughout all range of motion. The knee was then extended and the patella was everted. Patella was then measured, and then using an osteotomy guide, the patella was cut at the appropriate level. The patella was then measured and drilled and the patella trial was then placed. The knee was then taken through range of motion with the patella trial and the patella tracked normally using the no thumbs technique.. The knee was then extended patella trial was then removed and the patella was everted. Knee was then flexed and lug holes were drilled through the femoral trial and the femoral trial was then removed. The tibial was then re-exposed, and the tibial broach guide was then pinned in place after it was set for the appropriate rotation to allow for the most coverage without overhang. The tibia was then reamed and broached. The cut surfaces of bone were then irrigated with pulsatile lavage. The posterior structures were injected with the ropivacaine solution. The knee was also irrigated with Irrisept solution. The components were then opened, the cement was mixed, and the components were then cemented in place. The cement was allowed to harden with the knee in full extension. While the cement was hardening, the remaining soft tissues were then injected with a ropivacaine solution, which consisted of 246.25 mg of ropivacaine, 0.5 mg of epinephrine, 30 mg of Toradol, 80 g of clonidine, and 48.45 mL of sterile water, for a total of 100 mL of fluid injected. After the cemented hardened. The tourniquet was released, and hemostasis was obtained. A second gram of transexamic acid was given intravenously. The knee was again irrigated. The knee was again taken through range of motion and found to be stable throughout all range of motion of 0-130, and the patella tracked normally. The fascia was then closed with 0 Vicryl followed by #2 strata fix suture. The subcutaneous tissue was closed with 3-0 Vicryl and 3-0 strata fix. Exofin glue was used for the skin and placed with the knee in flexion. After the glue had dried, and Optafoam silver impregnated dressing was applied. The patient was then transferred to recovery room in stable condition. The special event assistant YULI Wynn was required due the complexity surgery and the need for a skilled instructor adjunct surgical technician. She assisted in positioning, draping, retraction, and closure of the wound.
[2020-06-12] MEDS ORDERED: LACTATED RINGERS 1,000 ML IV ONE (12:37)
[2020-06-12 13:04] VITALS: TEMP 97.1
[2020-06-12] MEDS ORDERED: ROPIVACAINE 0.2%-NS ON-Q PUMP 1,090 MG, EMPTY PAIN BALL 1 EACH MISCELLANE PRN (13:16)
--- NOTE | 2020-06-12 14:12 | XR ---
Right knee HISTORY: Postop 2 views the right knee Patient is status post right knee arthroplasty. There is anatomic alignment. Lucency is present withi n the soft tissues. Frontal view is somewhat rotated. There is overlying artifact. IMPRESSION: Orthopedic follow-up.
[2020-06-12 14:16] VITALS: RESP 16
[2020-06-12] MEDS ORDERED: HYDROcodone/APAP 7.5-325MG 1 EACH TAB ONE (14:44)
[2020-06-12] MEDS ORDERED: HYDROcodone/APAP 7.5-325MG 1 EACH TAB PO ONE (14:45)
[2020-06-12 16:36] VITALS: BP 111/65; PULSE 84
[2020-06-12] MEDS ORDERED: ASPIRIN 325 MG TAB PO SCH (21:00)
[2020-06-12] MEDS ORDERED: SENNOSIDES-DOCUSATE SODIUM 1 EACH TAB PO SCH (21:00)
[2020-06-13] MEDS ORDERED: MELOXICAM 7.5 MG TAB PO SCH (09:00)
--- NOTE | 2020-06-15 19:39 | P.ANPRN ---
Procedure Note - Anesthesia - Nerve Block Performed Right Adductor Canal Infusion Time Out Performed: Yes ([id number]) Date of Procedure: 06/12/20 Procedure Start Time: 11:00 Procedure Stop Time: 11:07 Location of Patient: PreOp Indication: Acute Post-Operative Pain, Requested by Surgeon Specifically requested for management of pain by DrShantel: Russell Schumacher Sedation Type: Sedate with meaningful contact maintained Preparation: Sterile Prep Position: Supine Catheter Depth at Skin (cm): 9 Catheter: Indwelling Needle Types: Pajunk Needle Gauge: 21 Ultrasound used to visualize needle placement: Yes Ultrasound used to observe medication spread: Yes Injectate: 0.5% Ropivacaine (see comment for volume) Blood Aspirated: No Pain Paresthesia on Injection Noted: No Resistance on Injection: Normal Image Stored and Saved: Yes Events: Uneventful and Well Tolerated
== END 2020-06-12 17:32 | disposition home health service (06) ==
LOC: OR 09:48
PROVIDERS: ATTEND Orthopaedic Surgery
DX: M17.0 Bilateral primary osteoarthritis of knee (principal); N40.0 Benign prostatic hyperplasia without lower urinary tract symptoms; E78.5 Hyperlipidemia, unspecified; G62.9 Polyneuropathy, unspecified; I25.2 Old myocardial infarction; Z97.3 Presence of spectacles and contact lenses; Z98.890 Other specified postprocedural states; Z90.89 Acquired absence of other organs; E66.3 Overweight; Z68.28 Body mass index [BMI] 28.0-28.9, adult; Z79.891 Long term (current) use of opiate analgesic; Z79.899 Other long term (current) drug therapy
CPT/HCPCS: 27447; 97161; 64448; 76942; 88300; 73560; C1713; C1776; J2250; J0171; J1100; J2710; J0690 ×2; J2405; J2001; J3010; J1885; J2795 ×2; J2370; J0330; J2704; J0735

== ENCOUNTER → 2020-07-26 | Outpatient (CLI) | payer MEDICARE ==
[2020-07-26 12:23] LABS: Appearance,Urine Clear (Clear); Bilirubin,Urine Negative (Negative); Blood,Urine Negative (Negative); Color,Urine Yellow; Glucose,Urine (UA) Negative (Negative); Ketones,Urine Negative (Negative); Leukocyte Esterase,Urine Negative (Negative); Nitrite,Urine Negative (Negative); Protein,Urine Negative (Negative); Specific Gravity,Urine 1.014 (1.001-1.035); Urobilinogen,Urine <2.0 mg/dL (<2.0)
[2020-07-26 14:56] LABS: Basophils # (A) 0.04 X 10*3/uL (0.00-0.10); Basophils % (A) 0.7 %; Eosinophils # (A) 0.23 X 10*3/uL (0.04-0.35); Eosinophils % (A) 3.8 %; HGB 14.6 g/dL (13.0-17.0); Lymphocytes # (A) 1.43 X 10*3/uL (0.90-5.00); Lymphocytes % (A) 23.9 %; MCH 30.3 pg (27.0-32.0); MCHC 32.4 g/dL (32.0-37.0); MCV 93.4 fL (80.0-97.0); Mean Platelet Volume 11.7 fL (9.5-12.2); Monocytes # (A) 0.58 X 10*3/uL (0.20-1.00); Monocytes % (A) 9.7 %; Neutrophils % (A) 61.7 %; Platelet Count 187 X 10*3/uL (140-440); RBC 4.82 X 10*6/uL (4.40-5.60); RDW 13.2 % (11.5-14.5); WBC 5.99 X 10*3/uL (4.50-10.00)
[2020-07-26 15:44] LABS: African American GFR (CKD) 86.8 (60.0-200.0); Anion Gap 7.9 mmol/L (4.00-12.00); Calcium 9.8 mg/dL (8.7-10.3); Carbon Dioxide 26.1 mmol/L (21.6-31.8); Non-African American GFR(CKD) 74.9 (60.0-200.0); Potassium 4.4 mmol/L (3.5-5.5)
== END | disposition home or self-care (01) ==
LOC: LABWHC1 09:03
PROVIDERS: ATTEND Urology
DX: N43.3 Hydrocele, unspecified (principal)
CPT/HCPCS: 36415; 80048; 81003; 85025

== ENCOUNTER 2021-04-01 15:43 | Emergency (ER) | payer MEDICARE ==
[2021-04-01 16:48] VITALS: BP 129/67; TEMP 99.3
--- NOTE | 2021-04-01 16:49 | ED ---
General Adult HPI <Juana Martinez - Last Filed: 04/01/21 16:45> <Jaquelin Erickson M - Last Filed: 04/01/21 20:39> - General Stated complaint: covid+ - History of Present Illness Initial comments: Carlos is a 75yo M who presents to the emergency department today via ambulance. Patient tested positive for COVID on Thursday the , he received monoclonal antibody therapy on Thursday the . Despite this therapy patient reports that today he began to feel more short of breath patient has no history of asthma or COPD. He reports he had some mild transient chest pain earlier in the afternoon but is asymptomatic upon arrival. Patient was not vaccinated for COVID-19. Pt is followed with Dr. Mehta regarding COVID-19, he has been taking Tessalon Perles and prednisone which completely. (Juana Martinez) - Related Data Home Medications Medication Instructions Recorded Confirmed Atorvastatin (Unknown Dose) 1 tab PO SUWE 06/04/20 06/12/20 Multivitamins, Thera [Multivitamin 1 tab PO DAILY 06/04/20 06/12/20 (formulary)] Previous Rx's Medication Instructions Recorded Aspirin 325 mg PO BID #60 tab 06/12/20 Celecoxib [CeleBREX] 200 mg PO DAILY 5 Days #5 capsule 06/12/20 Gabapentin 300 mg PO BID 5 Days #10 cap 06/12/20 HYDROcodone/APAP 7.5-325MG [[place] 1 - 2 tab PO Q6H PRN #32 tab 06/12/20 7.5-325] Ondansetron Odt [Zofran Odt] 1 tab PO Q8HR PRN #10 tab 06/12/20 Sennosides [Senokot] 2 tab PO DAILY PRN #60 tablet 06/12/20 Albuterol Sulfate [Proair Hfa] 1 - 2 puff INHALATION Q6HR PRN 04/01/21 #8.5 gm Dexamethasone 6 mg PO DAILY #9 tablet 04/01/21 guaiFENesin-DM 600/30MG [Mucinex 2 each PO Q12HR PRN #20 tab 04/01/21 Dm] Allergies Allergy/AdvReac Type Severity Reaction Status Date / Time No Known Allergies Allergy Verified 04/01/21 16:44 Review of Systems ROS Other: All systems not noted in ROS Statement are negative. <Juana Martinez P - Last Filed: 04/01/21 16:45> ROS Other: All systems not noted in ROS Statement are negative. <Jaquelin Erickson - Last Filed: 04/01/21 20:39> ROS Statement: Those systems with pertinent positive or pertinent negative responses have been documented in the HPI. Past Medical History Past Medical History: Hyperlipidemia, Pneumonia Additional Past Medical History / Comment(s): Neuropathy bilateral feet, pt was placed on statin but took himself off, arthritis bilateral thumbs/knees, bilateral eyes have floaters and pt states they are monitoring something in the back of his eyes but doesn't remember exactly what. History of Any Multi-Drug Resistant Organisms: None Reported Past Surgical History: Adenoidectomy, Appendectomy, Orthopedic Surgery, Tonsillectomy Additional Past Surgical History / Comment(s): Bilateral knee arthroscopies, L shoulder arthroscopy/rotator cuff surgery, colonoscopy-normal, bilateral cataract removal/lens implants. Past Anesthesia/Blood Transfusion Reactions: No Reported Reaction Past Alcohol Use History: Rare - Past Family History Mother Family Medical History: Congestive Heart Failure (CHF) Father Family Medical History: Musculoskeletal Disorder, Neurologic Disorder Additional Family Medical History / Comment(s): Father had Parkinson's. <Juana Martinez P - Last Filed: 04/01/21 16:45> General Exam <Juana Martinez P - Last Filed: 04/01/21 16:45> - General Exam Comments Initial Comments: Physical Exam GENERAL: Patient is well-developed and well-nourished. Patient is nontoxic and well-hydrated No acute distress HENT: Normocephalic, Atraumatic. EYES: PERRL, EOMI PULMONARY: Unlabored respirations CARDIOVASCULAR: RRR Warm and well perfused extremities ABDOMEN: Non-distended SKIN: No rashes or bruising : Deferred NEUROLOGIC: Alert and oriented Normal speech Normal gait MUSCULOSKELETAL: Moving all extremities with no apparent injury PSYCHIATRIC: No SI/HI (Juana Martinez) Course Vital Signs 04/01/21 16:44 Temperature 99.3 F Pulse Rate 90 Respiratory 20 Rate Blood Pressure 129/67 O2 Sat by Pulse 94 L Oximetry Medical Decision Making - Radiology Data Radiology results: report reviewed, image reviewed <Jaquelin Erickson - Last Filed: 04/01/21 20:39> - Medical Decision Making 75 year-old male patient presents for evaluation of continued shortness of breath and cough since being diagnosed with COVID. He did have antibodies on Thursday. States he is not feeling any better. Physical examination did reveal some crackles in the left lung. O2 saturation is 94-96% on room air. He did have ambulatory pulse ox 91% on room air. Chest xray showed interstitial infiltrates. He is given IM dose of decadron. Given ventolin inhaler and mucinex. I did discuss findings from him. He will be discharged to continue medications. Patient does feel comfortable at this time continuing outpatient treatment. He will be discharged to follow up with this primary care physician. Return parameters are discussed in detail. She verbalizes understanding and agrees with this plan. My attending is Dr. Martinez. (Jaquelin Erickson) - Radiology Data Two-view x-ray of the chest is obtained. Report was reviewed in its entirety. Impression by Dr. Ramos shows mild peripheral pulmonary interstitial infi ltrate mainly on the left side. (Jaquelin Erickson) Disposition <Juana Matrinez - Last Filed: 04/01/21 16:45> Is patient prescribed a controlled substance at d/c from ED?: No Time of Disposition: 20:09 <Jaquelin Erickson - Last Filed: 04/01/21 20:39> Clinical Impression: Pneumonia due to COVID-19 virus Disposition: HOME SELF-CARE Condition: Good Instructions (If sedation given, give patient instructions): Coronavirus Disease 2019 (COVID-19) Additional Instructions: Take medications as directed. If symptoms worsen return to the emergency depa rtment immediately. Follow-up with your primary care physician in one to 2 days. Return for any other new, worsening, or concerning symptoms. Tips to help you feel better: -Maintain adequate fluid intake - especially water. -Rest, you are healing your body will require extra sleep. -Eat even if you do not feel like it - broth, jello, toast are fine if you cannot eat full meals. -Take tylenol and motrin alternating (if you have no allergies or have not been instructed to avoid these medications) to help with body aches and fevers. -Obtain over the counter vitamin C, zinc, and vitamin D3. -Take medications as prescribed. Follow-up with your primary care physician for recheck in 1-2 days. Return for any new, worsening, or concerning symptoms. Prescriptions: Dexamethasone 6 mg PO DAILY #9 tablet guaiFENesin-DM 600/30MG [Mucinex Dm] 2 each PO Q12HR PRN #20 tab PRN Reason: Cough Albuterol Sulfate [Proair Hfa] 1 - 2 puff INHALATION Q6HR PRN #8.5 gm PRN Reason: Shortness Of Breath Referrals: Madyson Sandoval DO [Primary Care Provider] - 1-2 days
--- NOTE | 2021-04-01 18:33 | XR ---
EXAMINATION TYPE: XR chest 2V DATE OF EXAM: 04/01/2021 COMPARISON: 06/19/2019 HISTORY: Chest pain TECHNIQUE: 2 views FINDINGS: Heart is normal. There are no hilar masses. Mediastinum is normal. There is some mild perip heral pulmonary interstitial infiltrate. This is more on the left side. There is no pleural effusion. Bony thorax is intact. IMPRESSION: Mild peripheral pulmonary interstitial infiltrate mainly on the left side. This appears n ew compared to old exam. Normal heart.
[2021-04-01] MEDS ORDERED: DEXAMETHASONE SOD PHOSPHATE 10 MG/ML 1 ML VIAL IM STA (20:01)
[2021-04-01] MEDS ORDERED: ALBUTEROL HFA INHALER INHALATION STA (20:02)
[2021-04-01] MEDS ORDERED: guaiFENesin-DM 600/30MG 1 EACH TAB.ER.12H PO STA (20:06)
[2021-04-01 21:11] VITALS: PULSE 88; RESP 16
== END 2021-04-01 21:11 | disposition home or self-care (01) ==
LOC: EC 15:43
DX: U07.1 COVID-19 (principal); J12.82 Pneumonia due to coronavirus disease 2019; E78.5 Hyperlipidemia, unspecified; Z79.82 Long term (current) use of aspirin; Z90.49 Acquired absence of other specified parts of digestive tract
CPT/HCPCS: 99284; 96372; 94640; 71046; J1100

== ENCOUNTER → 2023-09-02 | Outpatient (CLI) | payer MEDICARE ==
[2023-09-02 16:29] LABS: Partial Thromboplastin Time 23.8 sec (22.0-30.0); Prothrombin Time 11.2 sec (10.0-12.5)
[2023-09-02 18:32] LABS: HGB 13.8 g/dL (13.0-17.0); MCH 30.3 pg (27.0-32.0); MCHC 33.7 g/dL (32.0-37.0); MCV 90.1 FL (80.0-97.0); Mean Platelet Volume 11.9 FL (9.5-12.2); NRBC Per 100 WBC 0 X 10*3/uL (0.00-0.01); Platelet Count 155 X 10*3/uL (140-440); RBC 4.55 X 10*6/uL (4.40-5.60); WBC 4.96 X 10*3/uL (4.50-10.00)
[2023-09-02 20:19] LABS: ALT 27 U/L (10-49); AST 33 U/L (14-35); Albumin 4.4 g/dL (3.8-4.9); Alkaline Phosphatase 92 U/L (41-126); Blood Urea Nitrogen 22.5 mg/dL (9.0-27.0); Calcium 9.1 mg/dL (8.7-10.3); Carbon Dioxide 20.8 mmol/L (21.6-31.8); Chloride 109 mmol/L (96-109); Globulin 2.1 g/dL (1.6-3.3); Glucose 103 mg/dL (70-110); Potassium 4.1 mmol/L (3.5-5.5); Sodium 141 mmol/L (135-145); Total Bilirubin 0.5 mg/dL (0.3-1.2); Total Protein 6.5 g/dL (6.2-8.2)
== END | disposition home or self-care (01) ==
LOC: LABWHC1 15:15
PROVIDERS: ATTEND Orthopaedic Surgery
DX: Z01.812 Encounter for preprocedural laboratory examination (principal); M17.12 Unilateral primary osteoarthritis, left knee; Z22.322 Carrier or suspected carrier of Methicillin resistant Staphylococcus aureus
CPT/HCPCS: 36415; 80053; 85027; 85610; 85730; 87070

== ENCOUNTER 2023-09-14 05:35 | Day surgery (SDC) | payer MEDICARE ==
[~2023-09-14 05:35] MED LIST changes: -ACETAMINOPHEN TAB 500 MG TAB PO PRN; -DEXAMETHASONE SOD PHOSPHATE 4 MG/ML 1 ML VIAL IV ONE; -GABAPENTIN 300 MG CAP PO PRN; -HYDROcodone/APAP 5-325MG 1 EACH TAB PO PRN; -HYDROmorphone 0.2 MG/1 ML SYRINGE IVP PRN; -HYDROmorphone 0.5 MG/0.5 ML SYRINGE IVP PRN; -LACTATED RINGERS 1,000 ML IV SCH; -LIDOCAINE 1% (10MG/ML) FOR IV START INTRADERMA PRN; -MAGNESIUM HYDROXIDE 2,400 MG/10 ML CUP PO PRN; -MELOXICAM 7.5 MG TAB PO PRN; -MIDAZOLAM 2 MG/2 ML VIAL IV PRN; -NA PHOS,M-B/NA PHOS,DI-BA 133 ML ENEMA RECTAL PRN; -NALOXONE 0.4 MG/ML 1 ML VIAL IV PRN; -ONDANSETRON 4 MG/2 ML VIAL IVP ONE; -ONDANSETRON 4 MG/2 ML VIAL IVP PRN; -SODIUM CHLORIDE 0.9% 1,000 ML IV SCH; +TRANEXAMIC 1,000 MG/100ML-NACL 1,000 MG in SALINE 1 100ML.BAG IVPB PRN; -TRANEXAMIC ACID 1,000 MG in SODIUM CHLORIDE 0.9% 100 ML IVPB PRN; -bisacodyL 10 MG SUPP RECTAL PRN; -fentaNYL (PF) 50 MCG/ML 2 ML AMP IVP PRN
[2023-09-14] MEDS: ACETAMINOPHEN TAB 500 MG TAB PO PRN (06:16)
[2023-09-14] MEDS: MELOXICAM 7.5 MG TAB PO PRN (06:17)
[2023-09-14] MEDS: GABAPENTIN 300 MG CAP PO PRN (06:18)
[2023-09-14] MEDS: IV FLUID CONTINUATION 1,000 ML IV ONE (06:20)
[2023-09-14] MEDS: LIDOCAINE 1% (10MG/ML) FOR IV START INTRADERMA PRN (06:20)
[2023-09-14] MEDS: LACTATED RINGERS 1,000 ML IV SCH (06:22)
[2023-09-14] MEDS: ONDANSETRON 4 MG/2 ML VIAL IVP ONE (06:30)
[2023-09-14] MEDS: DEXAMETHASONE SOD PHOSPHATE 4 MG/ML 1 ML VIAL IV ONE (06:31)
[2023-09-14] MEDS: fentaNYL (PF) 50 MCG/ML 2 ML AMP IVP PRN (06:45)
[2023-09-14] MEDS: MIDAZOLAM 2 MG/2 ML VIAL IV PRN (06:45)
[2023-09-14 06:58] VITALS: RESP 16
[2023-09-14] MEDS ORDERED: TRANEXAMIC 1,000 MG/100ML-NACL PREMIX BAG ONE (07:04)
[2023-09-14] MEDS ORDERED: SODIUM CHLORIDE 0.9% (PF) 10 ML VIAL ONE (07:04)
[2023-09-14] MEDS ORDERED: LIDOCAINE 1% INJ 10MG/ML (20 ML MDV) ONE (07:04)
[2023-09-14] MEDS ORDERED: fentaNYL (PF) 50 MCG/ML 2 ML AMP ONE (07:04)
[2023-09-14] MEDS ORDERED: PROPOFOL 10 MG/ML 20 ML VIAL IV ONE (07:04)
[2023-09-14] MEDS ORDERED: DEXAMETHASONE SOD PHOSPHATE 4 MG/ML 1 ML VIAL ONE (07:04)
[2023-09-14] MEDS ORDERED: ROCURONIUM 10 MG/ML (5 ML VIAL) IV ONE (07:04)
[2023-09-14] MEDS ORDERED: ROPIVACAINE 5 MG/ML 30 ML VIAL ONE (07:04)
[2023-09-14] MEDS ORDERED: ePHEDrine 50 MG/ML 1 ML VIAL ONE (07:04)
[2023-09-14] MEDS ORDERED: NEOSTIGMINE 1 MG/ML 10 ML VIAL ONE (07:04)
[2023-09-14] MEDS ORDERED: GLYCOPYRROLATE 0.2 MG/ML 2 ML VIAL ONE (07:04)
[2023-09-14] MEDS ORDERED: MIDAZOLAM 2 MG/2 ML VIAL ONE (07:04)
[2023-09-14] MEDS ORDERED: SUCCINYLCHOLINE CHLORIDE 200 MG/10 ML VIAL IV ONE (07:04)
[2023-09-14] MEDS: ceFAZolin 1,000 MG in SODIUM CHLORIDE 0.9% 1,000 ML IRRIGATION ONE (07:07)
[2023-09-14] MEDS ORDERED: HYDROmorphone 0.5 MG/0.5 ML SYRINGE IVP PRN ×2 (07:09)
[2023-09-14] MEDS ORDERED: NALOXONE 0.4 MG/ML 1 ML VIAL IV PRN (07:09)
[2023-09-14] MEDS ORDERED: HYDROcodone/APAP 7.5-325MG 1 EACH TAB PO PRN ×2 (07:10)
[2023-09-14] MEDS ORDERED: SODIUM CHLORIDE 0.9% 1,000 ML IV SCH (07:15)
--- NOTE | 2023-09-14 07:40 | P.ANPRN ---
Procedure Note - Anesthesia - Nerve Block Performed Left Adductor Canal Infusion Time Out Performed: Yes Date of Procedure: 09/14/23 Procedure Start Time: 06:45 Procedure Stop Time: 06:54 Location of Patient: PreOp Indication: Acute Post-Operative Pain, Requested by Surgeon Sedation Type: Sedate with meaningful contact maintained Preparation: Sterile Prep, Sterile Dressing Position: Supine Catheter: Indwelling Needle Types: Pajunk Needle Gauge: 18 Ultrasound used to visualize needle placement: Yes Ultrasound used to observe medication spread: Yes Injectate: 0.5% Ropivacaine (see comment for volume) (20 ml + 10 ml NS + 4 mg Dexamethasone) Blood Aspirated: No Pain Paresthesia on Injection Noted: No Resistance on Injection: Normal Image Stored and Saved: Yes Events: Uneventful and Well Tolerated
--- NOTE | 2023-09-14 07:41 | P.ANPRN ---
Procedure Note - Anesthesia - Nerve Block Performed Left iPack Single Time Out Performed: Yes Date of Procedure: 09/14/23 Procedure Start Time: 06:55 Procedure Stop Time: 07:00 Location of Patient: PreOp Indication: Acute Post-Operative Pain, Requested by Surgeon Sedation Type: Sedate with meaningful contact maintained Preparation: Sterile Prep Position: Right Lateral Needle Types: Pajunk Needle Gauge: 21 Ultrasound used to visualize needle placement: Yes Ultrasound used to observe medication spread: Yes Injectate: 0.5% Ropivacaine (see comment for volume) (20 ml + 10 ml NS + 4 mg Dexamethasone) Blood Aspirated: No Pain Paresthesia on Injection Noted: No Resistance on Injection: Normal
--- NOTE | 2023-09-14 08:18 | P.OP ---
Date of Procedure: 09/14/23 Preoperative Diagnosis: severe osteoarthritis left knee Postoperative Diagnosis: severe osteoarthritis left knee Procedure(s) Performed: left total knee arthroplasty Implants: [employer] Journey II CR Oxinium cruciate retaining femoral component size 7, left [employer] Journey nonporous tibial baseplate size 7, left [employer] Journey II, CR articular insert, size 9 mm, Size 7-8, left [employer] Journey Leatha II resurfacing patellar component, oval, 35 mm All components were cemented using Palacos R bone cement The articulation is Oxinium on polyethylene Anesthesia: GETA Surgeon: Russell Schumacher Technical Adjuster #1: Laura Alejandra Estimated Blood Loss (ml): 50 Pathology: none sent Disposition: PACU Indications for Procedure: The patient's knee is end-stage, and conservative management has failed. The operation of knee replacement has been discussed at length in the office, as well as potential risks and complications. These are inclusive of, but not limited to: Infection, bleeding, scarring, discomfort, stiffness, blood vessel and nerve damage, need for further surgery, failure to relieve symptoms, persistence, recurrence, or worsening of problems, loosening, dislocation, wear, blood clot, pulmonary embolism, , gait dysfunction, stiffness, and other risks as discussed in the office. Patient elects to proceed and the consent form has been signed. Operative Findings: the operative findings are consistent with severe osteoarthritis of the left knee Description of Procedure: The patient was seen in the preoperative area, the consent was reviewed and the operative site was marked with a skin marker. The patient verified the procedure and the operative site. An adductor canal pain catheter and an iPACK block were placed by anesthesia in the preoperative area. The patient was then brought to the operating room and positioned on the operating room table in the supine position. Preoperative antibiotics and a gram of tranexamic acid were given intravenously. A general anesthetic was administered by the anesthesia department. Care was taken to make sure that all pressure points were adequately padded. A tourniquet was placed on the upper thigh and the lower extremity was prepped with ChloraPrep and draped in usual sterile fashion. A universal time-out was then performed which confirmed the patient's name, surgical site, ALLERGIES, and consent. The lower extremity was then exsanguinated and tourniquet was inflated to 250 mmHg. A standard anterior midline approach to the knee was performed. The skin and subcutaneous tissue were sharply dissected down to the patellar tendon. A medial parapatellar arthrotomy was then performed. The knee was then extended, the patellar was everted, and the knee was flexed. The infra-patellar fat pad was removed in order to enhance exposure. The anterior horns of both menisci were excised, and a release was performed to the posterior medial aspect of the knee. On gross visual inspection, there was complete loss of articular cartilage in the medial and patellofemoral joint spaces. There was also significant cartilage damage in the lateral compartment. There were multiple p eriarticular osteophytes globally about the knee which were then removed with a Ronguer. The femoral canal was then opened with the 9.5 mm intramedullary drill. The 8 mm intramedullary hedy was then inserted into the femoral canal with the distal femoral cutting guide set for 5 of valgus. The distal femoral cutting block was then pinned in place. The intramedullary hedy was then removed, and the distal femur was then cut. The cutting block was then removed and the cut was checked for symmetry. The resected bone was then measured to confirm the appropriate distal femoral resection. Next, the sizing guide was then placed and set for 3 external rotation based off of the epicondylar axis and Opheim's line. Pins were then placed and the drill holes, and the femur was sized with the sizing stylus. The pins were then removed, and the sizing guide was then removed. The spikes of the appropriate size femoral block was then placed into the predrilled holes, and malleted into place. Two 45 mm pins were then placed into the fixation holes on the cutting block. An raeann wing was then used to ensure there would be no notching with the anterior cut. The anterior condyles were cut without notching. The anterior chord cut was then performed, followed by the posterior cut, posterior chamfer cut, and the anterior chamfer cut. The collateral ligaments were protected during the entire process. The cutting block was then removed. Any remaining bone and osteophytes were removed from the femur with a Ronguer. Attention was then directed to the tibia. The remaining ACL was removed with a Ronguer, and the tibia was then gently subluxed forward with a large bent knee retractor. Any remaining menisci were excised. The posterior lateral corner was cauterized in order to coagulate the lateral geniculate artery. The extra medullary tibial cutting guide was then placed, set for the appropriate rotation, slope, and depth of resection. The proximal tibia cutting guide was t hen pinned in place. Proximal tibia was then cut and sized. A curved osteotome was then used to remove any posterior osteophytes from the distal femur. The femoral trial was placed. A narrow saw blade was then used to remove the anterior intracondylar femoral bone. The CR notch trial was then placed. The tibial trial was placed with the appropriate-sized insert. The knee was able to fully extend and flex to 130 and was stable throughout all range of motion. The knee was then extended and the patella was everted. Patella was then measured, and then using an osteotomy guide, the patella was cut at the appropriate level. The patellar component was sized. The patellar drill guide was placed and the patella was drilled. The patella trial was then placed. The knee was then taken through range of motion with the patella trial and the patella tracked normally using the no thumbs technique. The patella trial was then removed. The knee was then flexed and lug holes were drilled through the femoral trial and the femoral trial was then removed. The tibial was then re- exposed, and the tibial broach guide was then pinned in place after it was set for the appropriate rotation to allow for the most coverage without overhang. The tibia was then reamed and broached. The femoral canal was plugged with autologous bone. The cut surfaces of bone were then irrigated with pulsatile lavage. The knee was also irrigated with Irrisept solution. The components were then opened, the cement was mixed. Cement was placed on the backside of the femoral, tibial, and patellar components. Cement was then applied to the tibial surface and pressurized into the surface using finger pressurization technique. The tibial component was then applied and excess cement was removed after it was impacted securely noted to be flush with the cut surface. In similar fashion, the cement was applied to the cut femoral surface, pressurized and using finger pressurization the component was impacted in place. Excess cement was removed. The polyethylene spacer was then implanted and locked into position. Patellar component was then applied in a similar technique and the patellar clamp was used to hold patella in place while the cement hardened. The knee was held in full extension while the cement hardened. Once the cement had fully hardened, the knee was reinspected. Any other cement extrusion was removed the final range of motion testing showed range of motion from 0-130 with excellent stability, both medial and laterally and appropriate alignment of the leg. Patella tracked normally. After the cemented hardened, the tourniquet was released and hemostasis was obtained. A second gram of transexamic acid was given intravenously. The knee was again irrigated. The knee was again taken through range of motion and found to be stable throughout all range of motion of 0-130, and the patella tracked normally. The fascia was then closed with 0 Vicryl followed by #2 strata fix suture. The subcutaneous tissue was closed with 3-0 Vicryl and 3-0 strata fix. Exofin glue was used for the skin and placed with the knee in flexion. After the glue had dried, and Optafoam silver impregnated dressing was applied. A lightly compressive dressing was applied using web roll and Mark wrap. Patient was then transferred to the stretcher and taken to recovery room in stable condi tion. Sponge and needle counts were correct. The broker assistant YULI Wynn was required due the complexity surgery and the need for a skilled rn medical surgical. She assisted in positioning, draping, retraction, and closure of the wound.
[2023-09-14] MEDS: LACTATED RINGERS 1,000 ML IV ONE (08:19)
[2023-09-14] MEDS: HYDROmorphone 0.5 MG/0.5 ML SYRINGE IVP PRN ×2 (09:04→09:15)
[2023-09-14] MEDS: ROPIVACAINE 1,100 MG, SODIUM CHLORIDE 0.9% 500 ML 330 ML, EMPTY PAIN BALL 1 EACH MISCELLANE PRN (09:07)
--- NOTE | 2023-09-14 10:25 | XR ---
EXAMINATION TYPE: XR knee limited LT DATE OF EXAM: 09/14/2023 9:58 AM CLINICAL INDICATION:Male, 78 years old with history of Evaluation for Postop abnormality and alignmen t; COMPARISON: None. TECHNIQUE: XR knee limited LT; examined in Frontal, lateral and oblique projections. FINDINGS: Status post total knee arthroplasty changes with hardware in appropriate alignment and in tact. No evidence of fracture. IMPRESSION: Status post total knee arthroplasty changes with hardware intact and appropriate alignment. No fractu res identified.
[2023-09-14] MEDS: ONDANSETRON 4 MG/2 ML VIAL IVP PRN (12:38)
[2023-09-14 13:22] VITALS: BP 134/76; PULSE 82; TEMP 97.2
== END 2023-09-14 13:20 | disposition home health service (06) ==
LOC: OR 05:35
PROVIDERS: ATTEND Orthopaedic Surgery
DX: M17.12 Unilateral primary osteoarthritis, left knee (principal); G89.18 Other acute postprocedural pain; M21.162 Varus deformity, not elsewhere classified, left knee; E78.5 Hyperlipidemia, unspecified; I25.10 Atherosclerotic heart disease of native coronary artery without angina pectoris; G62.9 Polyneuropathy, unspecified; Z79.899 Other long term (current) drug therapy; Z79.82 Long term (current) use of aspirin; Z87.891 Personal history of nicotine dependence
CPT/HCPCS: 27447; 97530; 97161; 64999; 64448; 73560; C1713; C1776; C1751; J2250; J0330; J1100; J2710; J0690 ×2; J2405; J2001; J3010; J2795; J2704; J1170